=== PATIENT | female | born 1970 | race Two or more races ===

== ENCOUNTER 2024-01-10 11:55 | Emergency (ER) | payer OTHER ==
[~2024-01-10] VITALS: Ht 167.6 cm; Wt 61.7 kg
[2024-01-10 14:43] LABS: HEMATOCRIT 42.6 % (36.0-45.00); HEMOGLOBIN 14.6 g/dL (12.0-15.00); MEAN CELL VOLUME 97.8 fL (80.00-100.00); MEAN CORPUSCULAR HEMOGLOBIN 33.6 pg (27.00-32.0); MEAN CORPUSCULAR HGB CONC 34.3 g/dl (32.0-36.0); PLATELET COUNT 260 K/uL (150-450); RED BLOOD COUNT 4.36 M/uL (4.00-6.00); RED CELL DISTRIBUTION WIDTH 13.2 % (11.5-14.5)
[2024-01-10 14:46] LABS: URINE APPEARANCE Clear; URINE BILIRRUBIN Negative (NEGATIVE); URINE BLOOD Negative; URINE COLOR Yellow; URINE GLUCOSE Negative (NEGATIVE); URINE LEUKOCYTE Negative; URINE NITRATE Negative; URINE PROTEIN Negative (NEGATIVE); URINE UROBILINOGEN 0.2 E.U./dl
[2024-01-10 14:49] LABS: URINE BACTERIA 581.9 uL (0.0-1933); URINE EPITHELIAL CELLS 4.6 uL (0.0-38.8); URINE RBC 19.3 uL (0.0-20.8)
[2024-01-10 15:03] LABS: URINE KETONE 80 (NEGATIVE)
[2024-01-10 15:18] LABS: CALCIUM 9.5 mg/dL (8.5-10.1); CREATININE SERUM 0.69 mg/dL (0.55-1.02); GFR 89.69; POTASSIUM 4.38 mEq/L (3.5-5.1)
== END 2024-01-10 16:16 | disposition home or self-care (01) ==
LOC: ER 11:56
PROVIDERS: General Practice
DX: R10.31 Right lower quadrant pain (principal); K59.00 Constipation, unspecified

== ENCOUNTER 2024-10-04 12:46 | Emergency (ER) | payer OTHER ==
[~2024-10-04] VITALS: Ht 160 cm; Wt 61.7 kg
[2024-10-04] MEDS ORDERED: KETOROLAC TROMETHAMINE 30 MG VIAL IM ONE (15:00)
[2024-10-04] MEDS ORDERED: ORPHENADRINE CITRATE 30 MG/ML AMPUL IM ONE (15:00)
[2024-10-04] MEDS ORDERED: DICLOFENAC SODI50 MG PO (16:21)
[2024-10-04] MEDS ORDERED: NORFLEX100MG PO (16:21)
== END 2024-10-04 17:17 ==
LOC: ER 12:46
DX: T14.8XXA Other injury of unspecified body region, initial encounter (principal); V49.9XXA Car occupant (driver) (passenger) injured in unspecified traffic accident, initial encounter; Y93.89 Activity, other specified; Y92.413 State road as the place of occurrence of the external cause; Y99.9 Unspecified external cause status; M62.838 Other muscle spasm

== ENCOUNTER 2024-10-17 16:03 | Emergency (ER) | payer OTHER ==
[~2024-10-17] VITALS: Ht 160 cm; Wt 62.1 kg
[~2024-10-17 16:03] MED LIST: DICLOFENAC SODI50 MG PO; NORFLEX100MG PO
[2024-10-17 19:04] LABS: BASO % 0.9 % (0.1-1.2); EOS # 0.17 (0.04-0.54); EOS % 2.5 % (0.7-7.0); LYMPH # 3.09 (1.18-3.74); LYMPH % 45.6 % (19.3-53.1); MEAN PLATELET VOLUME 10.10 fl (9.4-12.4); MONO # 0.72 (0.24-0.82); MONO % 10.6 % (4.7-12.5); NEUT # 2.71 (1.56-6.13); NEUT % 40.0 % (34.0-71.1); RED CELL DISTRIBUTION WIDTH 11.7 % (11.6-14.4)
[2024-10-17 19:35] LABS: INR 1.0
[2024-10-17 19:41] LABS: ALT/SGPT 48.0 U/L (12-78); AST/SGOT 23.0 U/L (15-37); BILIRUBIN TOTAL 0.96 mg/dL (0.3-1.2); BUN CREA RATIO 18.0 (7.0-25.0); CREATININE SERUM 0.66 mg/dL (0.55-1.02); GFR 94.04; GLOBULINA 3.5 G/DL (2.4-3.5); GLUCOSE FASTING 88.0 mg/dL (65-100); OSMOLALITY SERUM 279.0 MOSM/KG (275-295)
[2024-10-17 19:42] LABS: URINE APPEARANCE Clear; URINE BILIRRUBIN Negative (NEGATIVE); URINE BLOOD Large; URINE COLOR Yellow; URINE GLUCOSE Negative (NEGATIVE); URINE KETONE 15 (NEGATIVE); URINE LEUKOCYTE Negative; URINE NITRATE Negative; URINE PROTEIN Negative (NEGATIVE); URINE UROBILINOGEN 0.2 E.U./dl
[2024-10-17 19:46] LABS: URINE BACTERIA 374.3 uL (0.0-1933); URINE EPITHELIAL CELLS 9.9 uL (0.0-38.8); URINE RBC 408.4 uL (0.0-20.8); URINE WBC 5.3 uL (0.0-23.2)
[2024-10-17 19:53] LABS: URINE CAST 0.00 uL (0.0-1.40)
[2024-10-17] MEDS ORDERED: KETO10TA2 PO (21:46)
== END 2024-10-17 21:59 | disposition home or self-care (01) ==
LOC: ER 16:21
PROVIDERS: Emergency Medicine
DX: R10.9 Unspecified abdominal pain (principal); I10 Essential (primary) hypertension